=== PATIENT | female | born 1990 | race Caucasian/White ===

== ENCOUNTER → 2022-01-05 | Outpatient (CLI) | payer BC ==
--- NOTE | 2022-01-05 18:24 | Diagnostic Imaging Report ---
INDICATION: anatomy survey. TECHNIQUE: Multiple real-time grayscale images were obtained over the gravid uterus. COMPARISON: None. FINDINGS: Single live intrauterine is in cephalic presentation. Cervix measures 5.1 cm. Placenta is anterior positioned and there is no previa. Maternal adnexa are suboptimally evaluated due to advanced gestational age. Following anatomy is visualized and normal: Umbilical cord insertion, stomach, cerebral ventricles, urinary bladder, left ventricular outflow tract, cerebellum, right ventricular outflow tract, four-chamber heart, kidneys and lip/nose. The spine is not well evaluated due to positioning. Biometrical measurements are as follows: Biparietal 4.59 cm, age 20 weeks 0 days. Head circumference 17.45 cm, age 20 weeks 0 days. Abdominal circumference 15.59 cm, age 20 weeks 6 days. Femur length 3.43 cm, age 20 weeks 6 days. Sonographic estimate age: 20 weeks 3 days. Sonographic estimated date of delivery: 05/22/2022. Estimated Weight: 368 gm (+/- 54 gm). LMP percentile: 81%. heart rate: 160 beats per minute. number: 1 of 1. IMPRESSION: 1. Single live intrauterine has no abnormality of the visualized anatomy. However, the spine is suboptimally evaluated due to positioning. Dictated by: Dictated on workstation # [id number]
== END ==
LOC: RAD 11:31
PROVIDERS: ATTEND Nurse Practitioner Women's Health
DX: Z34.02 Encounter for supervision of normal first pregnancy, second trimester (principal); Z3A.00 Weeks of gestation of pregnancy not specified
CPT/HCPCS: 76805

== ENCOUNTER 2022-06-01 11:26 | Inpatient (IN) | payer BC ==
[~2022-06-01] VITALS: Ht 162.6 cm; Wt 105.5 kg
[2022-06-01] MEDS ORDERED: MINERAL OIL 30 ML UDC TOP PRN (11:45)
[2022-06-01 11:50] LABS: BILIRUBIN,URINE NEGATIVE (NEGATIVE); CLARITY,URINE CLEAR; COLOR,URINE YELLOW; GLUCOSE, URINE (UA) NEGATIVE (NEGATIVE); KETONES,URINE NEGATIVE (NEGATIVE); LEUKOCYTE ESTERASE ,URINE NEGATIVE (NEGATIVE); NITRITE,URINE NEGATIVE (NEGATIVE); PROTEIN,URINE NEGATIVE (NEGATIVE)
[2022-06-01 12:02] LABS: BACTERIA,URINE NEGATIVE /HPF; SQUAMOUS EPITHELIAL CELL,UR 0-2 /HPF
[2022-06-01 12:13] LABS: URINE CREATININE FOR RATIO 15 MG/DL (30-125)
[2022-06-01 12:14] LABS: URINE PROTEIN FOR RATIO ONLY < 6 MG/DL (6-12)
[2022-06-01 12:16] VITALS: BP 130/81
[2022-06-01 12:33] LABS: BASOPHILS % (AUTO) 0 % (0-10); EOSINOPHILS # (AUTO) 0.1 10^3/uL (0.0-0.3); EOSINOPHILS % (AUTO) 0 % (0-10); HEMATOCRIT 38 % (35-52); HEMOGLOBIN 12.8 g/dL (11.5-16.0); LYMPHOCYTES # (AUTO) 1.5 10^3/uL (1.0-4.0); LYMPHOCYTES % (AUTO) 12 % (12-44); MEAN CORPUSCULAR HEMOGLOBIN 29 pg (25-34); MEAN CORPUSCULAR HGB CONC 34 g/dL (32-36); MEAN CORPUSCULAR VOLUME 86 fL (80-99); MEAN PLATELET VOLUME 10.2 fL (9.0-12.2); MONOCYTES # (AUTO) 0.8 10^3/uL (0.0-1.0); MONOCYTES % (AUTO) 6 % (0-12); NEUTROPHILS # (AUTO) 10.3 10^3/uL (1.8-7.8); NEUTROPHILS % (AUTO) 81 % (42-75); PLATELET COUNT 238 10^3/uL (130-400); WHITE BLOOD COUNT 12.7 10^3/uL (4.3-11.0)
--- NOTE | 2022-06-01 12:43 | History & Physical-OB ---
JAYNA SAUCEDO 06/01/22 1243: OB - Chief Complaint & HPI Date/Time Date of Admission: Date of Admission: Jun 01, 2022 at 11:26 Time Seen by a Provider: 13:15 Chief Complaint/History OB-Reason for Admission/Chief: Onset of Labor Hx : 1 Hx Para: 0 Expected Date of Delivery: May 25, 2022 Gestational Age in Weeks: 41 Gestational Age in Days: 0 Admission Nurse Assessment Rev: Yes Allergies and Home Medications Allergies Coded Allergies: No Known Drug Allergies (Unverified , 06/01/22) Patient Home Medication List Home Medication List Reviewed: Yes OB - History Hx of Present Ultrasounds: Normal mid trimester US Obstetrical Complications: None Medical Complications: None Information Induced Hypertension: No Maternal Gestational Diabetes: No Hemorrhage: No Obstetrical History Hx : 1 Hx Para: 0 Hx # Pregnancies: 0 Hx Termination: No Hx Multiple Gestation: No Hx Ectopic : No Hx Stillbirth: No Hx Complication: No Hx Induced Hypertens: No Hx Maternal Gestational Diabet: No Hx Hemorrhage: No Delivery History Hx Dystocia: No Hx Forceps Assisted Delivery: No Hx Vacuum Extraction Assisted: No Hx Placenta Abnormality: No Hx Distress: No Hx Large For Gestational Age I: No Hx Small for Gestational Age I: No Hx Section: No Hx Vaginal Delivery Post C-Sec: No Hx Blood Disorders: No Adverse Rxn to Tranfusion: No Immunizations Influenza Vaccine Up-to-Date: Yes; Up-to-Date COVID19 Vaccine Pattern Mechanic: [place] Tetanus Booster (TDap): Less than 5yrs Rubella: immune RPR/VDRL: Negative GBS Status: Positive HBsAG: Negative OB - Admission Exam Physical Exam Vitals: Vital Signs 06/01/22 12:16 Temp 37.1 Pulse 96 Resp 18 Pulse Ox 98 O2 Delivery Room Air Heart: Rhythm Normal Lungs: Clear Abdomen: Gravid Extremities: Normal Cervical Dilatation: 1cm Effacement: 75% Membranes: Intact Heart Rate: 120's Contractions on Admission: < 5 Minutes Apart Intensity: Mild Tan Scoring Tool (Modified) Dilation (cm): 1-2cm (1) Effacement (%): 51-79% (2) Labs Laboratory Tests Test 06/01/22 11:37 06/01/22 12:00 Range/Units Urine Color YELLOW Urine Clarity CLEAR Urine pH 6.0 5-9 Urine Specific [place] <=1.005 1.016-1.022 Urine Protein NEGATIVE NEGATIVE Urine Glucose (UA) NEGATIVE NEGATIVE Urine Ketones NEGATIVE NEGATIVE Urine Nitrite NEGATIVE NEGATIVE Urine Bilirubin NEGATIVE NEGATIVE Urine Urobilinogen 0.2 < = 1.0 MG/DL Urine Leukocyte Esterase NEGATIVE NEGATIVE Urine RBC (Auto) NEGATIVE NEGATIVE Urine RBC NONE /HPF Urine WBC NONE /HPF Urine Squamous Epithelial Cells 0-2 /HPF Urine Crystals NONE /LPF Urine Bacteria NEGATIVE /HPF Urine Casts NONE /LPF Urine Mucus NEGATIVE /LPF Urine Culture Indicated NO Urine Creatinine 15 L 30-125 MG/DL Urine Protein/Creatinine Ratio White Blood Count 12.7 H 4.3-11.0 10^3/uL Red Blood Count 4.40 3.80-5.11 10^6/uL Hemoglobin 12.8 11.5-16.0 g/dL Hematocrit 38 35-52 % Mean Corpuscular Volume 86 80-99 fL Mean Corpuscular Hemoglobin 29 25-34 pg Mean Corpuscular Hemoglobin Concent 34 32-36 g/dL Red Cell Distribution Width 14.0 10.0-14.5 % Platelet Count 238 130-400 10^3/uL Mean Platelet Volume 10.2 9.0-12.2 fL Immature Granulocyte % (Auto) 1 % Neutrophils (%) (Auto) 81 H 42-75 % Lymphocytes (%) (Auto) 12 12-44 % Monocytes (%) (Auto) 6 0-12 % Eosinophils (%) (Auto) 0 0-10 % Basophils (%) (Auto) 0 0-10 % Neutrophils # (Auto) 10.3 H 1.8-7.8 10^3/uL Lymphocytes # (Auto) 1.5 1.0-4.0 10^3/uL Monocytes # (Auto) 0.8 0.0-1.0 10^3/uL Eosinophils # (Auto) 0.1 0.0-0.3 10^3/uL Basophils # (Auto) 0.0 0.0-0.1 10^3/uL Immature Granulocyte # (Auto) 0.1 0.0-0.1 10^3/uL OB - Assessment/Plan/Diagnosis Assessment Assessment: active labor, group B positive strep Admission Dx Active labor Admission Status: Inpatient Order (span 2 midnights) Plan Plan: Expectant Management CHAD OREILLY DO 06/01/22 1528: OB - Chief Complaint & HPI Date/Time Time Seen by a Provider: 15:27 Allergies and Home Medications Allergies Coded Allergies: No Known Drug Allergies (Unverified , 06/01/22) OB - History Patient Past Medical History nc OB - Assessment/Plan/Diagnosis Assessment Assessment: induction of labor Admission Dx 31 yo @ 41 weeks Post dates GBS pos Labile BP Plan Induction Method: per Misoprostol Protocol Other Plan Verification and Attestation of Medical Student E/M Service A medical student performed and documented this service in my presence. I revie wed and verified all information documented by the medical student and made modifications to such information, when appropriate. I personally performed the physical exam and medical decision making. Chad Oreilly, Jun 01, 2022,15:28 JAYNA SAUCEDO Jun 01, 2022 12:43 CHAD OREILLY DO Jun 01, 2022 15:28
[2022-06-01] MEDS ORDERED: AMPICILLIN FOR IV USE 2,000 MG in WATER (STERILE) FOR INJECTION 14.8 ML IV ONE (12:45)
[2022-06-01 12:46] LABS: ALBUMIN 3.4 GM/DL (3.2-4.5); BILIRUBIN,TOTAL 0.5 MG/DL (0.1-1.0); CALCIUM 8.3 MG/DL (8.5-10.1); CREATININE SERUM 0.67 MG/DL (0.60-1.30); POTASSIUM 3.6 MMOL/L (3.6-5.0); TOTAL PROTEIN 6.7 GM/DL (6.4-8.2)
[2022-06-01] MEDS: D5 LR IV SOLUTION 1,000 ML IV SCH ×2 (12:52→19:31)
[2022-06-01] MEDS: CATHETER FLUSH 10 ML SYR IV SCH ×2 (14:17→21:07)
[2022-06-01 15:39] VITALS: BP 112/67
[2022-06-01] MEDS: AMPICILLIN FOR IV USE 1,000 MG in NS (IVPB) 50 ML IV SCH ×2 (16:44→21:06)
[2022-06-01 21:15] VITALS: BP 126/78
[2022-06-01 23:37] VITALS: BP 121/63
[2022-06-02] VITALS (68 sets, daily range): BP systolic 106–167; BP diastolic 55–124
[2022-06-02] MEDS: AMPICILLIN FOR IV USE 1,000 MG in NS (IVPB) 50 ML IV SCH ×6 (01:25→18:07)
[2022-06-02] MEDS: D5 LR IV SOLUTION 1,000 ML IV SCH ×3 (03:55→19:45)
[2022-06-02] MEDS: CATHETER FLUSH 10 ML SYR IV SCH ×2 (06:16→14:17)
[2022-06-02] MEDS ORDERED: OXYTOCIN PRE-MIX DRIP 500 ML IV ONE (06:48)
--- NOTE | 2022-06-02 06:58 | Labor Progress Note ---
Labor Progress Note Labor Progress Note Date Seen by Provider: Jun 02, 2022 Time Seen by Provider: 07:30 Subjective: Pt denies complaints. Pain is manageable. Objective: Vital Signs Date Time Temp Pulse Resp B/P (MAP) Pulse Ox O2 Delivery O2 Flow Rate FiO2 06/01/22 21:15 37.1 102 20 126/78 (94) Room Air 06/01/22 15:39 36.7 82 18 112/67 (82) Room Air 06/01/22 12:16 37.1 96 18 98 Room Air I & O 06/02/22 07:00 Intake Total 975 ml Balance 975 ml Cervical exam: 1.5 Presentation: Vertex heart tones: 135 beats per minute, moderate variability Assessment/Plan: Jonna Meier is a (31 /Para 1 / 0,Gestational Age (wks)41 here for spontaneous induction of labor. CEFM/TOCO Starting ptocin soon. Anesthesia: No epidural placed at this time Anticipate vaginal delivery. Vitals - Labs Vital Signs - I&O Vital Signs Date Time Temp Pulse Resp B/P (MAP) Pulse Ox O2 Delivery O2 Flow Rate FiO2 06/01/22 21:15 37.1 102 20 126/78 (94) Room Air 06/01/22 15:39 36.7 82 18 112/67 (82) Room Air 06/01/22 12:16 37.1 96 18 98 Room Air I & O 06/02/22 07:00 Intake Total 975 ml Balance 975 ml Labs Laboratory Tests 06/01/22 11:37: Urine Color YELLOW, Urine Clarity CLEAR, Urine pH 6.0, Urine Specific [place] <=1.005, Urine Protein NEGATIVE, Urine Glucose (UA) NEGATIVE, Urine Ketones NEGATIVE, Urine Nitrite NEGATIVE, Urine Bilirubin NEGATIVE, Urine Urobilinogen 0 .2, Urine Leukocyte Esterase NEGATIVE, Urine RBC (Auto) NEGATIVE, Urine RBC NONE, Urine WBC NONE, Urine Squamous Epithelial Cells 0-2, Urine Crystals NONE, Urine Bacteria NEGATIVE, Urine Casts NONE, Urine Mucus NEGATIVE, Urine Culture Indicated NO, Urine Creatinine 15L, Urine Protein/Creatinine Ratio 06/01/22 12:00: White Blood Count 12.7H, Red Blood Count 4.40, Hemoglobin 12.8, Hematocrit 38, Mean Corpuscular Volume 86, Mean Corpuscular Hemoglobin 29, Mean Corpuscular Hemoglobin Concent 34, Red Cell Distribution Width 14.0, Platelet Count 238, Mean Platelet Volume 10.2, Immature Granulocyte % (Auto) 1, Neutrophils (%) (Auto) 81H, Lymphocytes (%) (Auto) 12, Monocytes (%) (Auto) 6, Eosinophils (%) (Auto) 0, Basophils (%) (Auto) 0, Neutrophils # (Auto) 10.3H, Lymphocytes # (Auto) 1.5, Monocytes # (Auto) 0.8, Eosinophils # (Auto) 0.1, Basophils # (Auto) 0.0, Immature Granulocyte # (Auto) 0.1, Sodium Level 138, Potassium Level 3.6, Chloride Level 108H, Carbon Dioxide Level 19L, Anion Gap 11, Blood Urea Nitrogen 6L, Creatinine 0.67, Estimat Glomerular Filtration Rate 121, BUN/Creatinine Ratio 9, Glucose Level 79, Uric Acid 5.0, Calcium Level 8.3L, Corrected Calcium 8.8, Total Bilirubin 0.5, Aspartate Amino Transf (AST/SGOT) 13, Alanine Aminotransferase (ALT/SGPT) 16, Alkaline Phosphatase 150H, Total Protein 6.7, Albumin 3.4, Syphilis Serology Non-Reactive JAYNA SAUCEOD Jun 02, 2022 06:58
[2022-06-02] MEDS ORDERED: OXYTOCIN PRE-MIX DRIP 500 ML IV SCH (07:45)
[2022-06-02] MEDS ORDERED: LACTATED RINGERS 1,000 ML IV ONE (09:45)
[2022-06-02] MEDS ORDERED: fentaNYL 2 mcg/ml BUPIVA 0.125 100 ML ONE (09:45)
[2022-06-02] MEDS ORDERED: fentaNYL INJ 100 MCG/2 ML AMP ONE ×2 (10:00→19:27)
[2022-06-02] MEDS ORDERED: BUPIVACAINE 0.5% 30 ML (SENSORCAINE) VIAL ONE ×2 (10:01→20:13)
[2022-06-02] MEDS: fentaNYL 2 mcg/ml BUPIVA 0.125 100 ML EPI SCH ×2 (10:42→18:09)
[2022-06-02] MEDS ORDERED: diphenhydrAMINE 50 MG/ML INJ (BENADRYL) IV PRN (10:45)
[2022-06-02] MEDS ORDERED: LACTATED RINGERS 1,000 ML IV SCH (10:45)
[2022-06-02] MEDS ORDERED: ONDANSETRON 4 MG/2 ML (SDV) Z0FRAN IV PRN (10:45)
[2022-06-02] MEDS ORDERED: NALOXONE 0.4 MG/ML 1 ML (NARCAN) VIAL IV PRN ×2 (10:45→19:45)
[2022-06-02] MEDS ORDERED: METOCLOPRAMIDE INJ 10 MG/2 ML (REGLAN) ONE (19:21)
[2022-06-02] MEDS ORDERED: FAMOTIDINE 20MG/2ML IV (PEPCID) ONE (19:21)
[2022-06-02] MEDS ORDERED: CITRIC ACID/SOB CIT (BICITRA) 30 ML UDC ONE (19:21)
[2022-06-02] MEDS ORDERED: ceFAZolin INJECTION 2,000 MG ONE (19:22)
[2022-06-02] MEDS ORDERED: NS (IVPB) 50 ML ONE (19:22)
[2022-06-02] MEDS ORDERED: LIDOCAINE PF 2% 5 ML (XYLOCAINE) VIAL ONE ×2 (19:27→20:13)
[2022-06-02] MEDS ORDERED: CATHETER FLUSH 10 ML SYR IV PRN (19:30)
[2022-06-02] MEDS ORDERED: ceFAZolin INJECTION 2,000 MG in NS (IVPB) 50 ML IV ONE (19:30)
[2022-06-02] MEDS ORDERED: METOCLOPRAMIDE INJ 10 MG/2 ML (REGLAN) IV ONE (19:30)
[2022-06-02] MEDS ORDERED: LACTATED RINGERS 1,000 ML IV PRN ×2 (19:30)
[2022-06-02] MEDS ORDERED: FAMOTIDINE 20MG/2ML IV (PEPCID) IV ONE (19:30)
[2022-06-02] MEDS ORDERED: CITRIC ACID/SOB CIT (BICITRA) 30 ML UDC PO ONE (19:30)
[2022-06-02] MEDS ORDERED: TETANUS,DIPTH,PERTUSS P/F (BOOSTRIX) 0.5 ML VIAL IM SCH (19:45)
[2022-06-02] MEDS ORDERED: ONDANSETRON 4 MG/2 ML (SDV) Z0FRAN IVP PRN (19:45)
[2022-06-02] MEDS ORDERED: MEASLES,MUMPS,RUBELLA 1 EA INJ SC SCH (19:45)
--- NOTE | 2022-06-02 19:49 | Progress Note ---
Standard Progress Note Progress Notes/Assess & Plan Date Seen by a Provider: Jun 02, 2022 Time Seen by a Provider: 19:47 Progress/Assessment & Plan Patient admitted yesterday for post dates IOL 41 weeks with elevations in BP in the office, and non-reactive NST. Misoprostol used PO overnight, and started on pitocin this AM, followed by AROM, and epidural placement. She progressed to 4 cm when a large caput began to develop. No further progression took place over the next 5 hrs. heart tracing had periods of tachycardia and variable, at which point I recommended proceeding the Primary C/S. Risk reviewed with patient vs. risk of further waiting and she was agreeable to proceed. CHAD OREILLY DO Jun 02, 2022 19:49
--- NOTE | 2022-06-02 19:51 | Discharge Inst-Women's Service ---
Discharge Inst-Women's Serv Depart Medication/Instructions New, Converted or Re-Newed RX: Transmitted to Pharmacy Final Diagnosis POD 2 PLTCS Problems Reviewed?: Yes Consults/Follow Up Additional Follow Up: Yes Orders/Referrals Dr. Simms in 7-10 days and in 6 weeks Activity Activity: Activity as Tolerated Driving Instructions: No Driving for 1 Week NO SMOKING: NO SMOKING Nothing Inside Vagina: No Douching, No [place], No Tampons Diet Discharge Diet: No Restrictions Symptoms to Report to : Bleeding Excessive, Pain Increased, Fever Over 101 Degrees F, Vaginal Bleeding Increase, Questions/Concerns For Any Problems or Questions: Contact Your Physician Skin/Wound Care Infection Signs and Symptoms: Increased Redness, Foul Odor of Wound, Increased Drainage, Skin Itchy or Has a Rash, Increased Swelling, Temperature Above 101 F Operative Area Clean and Dry: Keep Incision Clean/Dry Stitches/[place]/Dermabond: Dermabond, Care of Stitches Bathing Instructions: CHAD Vyas DO Jun 02, 2022 19:50
[2022-06-02] MEDS ORDERED: IBUP-844 PO (19:52)
[2022-06-02] MEDS ORDERED: DOCU100C37 PO (19:52)
[2022-06-02] MEDS ORDERED: ACHD5005 PO (19:52)
[2022-06-02] MEDS ORDERED: CARBOPROST (HEMABATE) 250 MCG/ML AMP IM ONE (20:11)
[2022-06-02] MEDS ORDERED: ONDANSETRON 4 MG/2 ML (SDV) Z0FRAN ONE (20:13)
[2022-06-02] MEDS ORDERED: KETOROLAC 30 MG/ML VIAL ONE (20:27)
[2022-06-02] MEDS: KETOROLAC 30 MG/ML VIAL IV SCH (20:30)
[2022-06-02] MEDS ORDERED: CATHETER FLUSH 10 ML SYR IV SCH (22:00)
[2022-06-02] MEDS: OXYTOCIN PRE-MIX DRIP 500 ML IV SCH ×2 (22:47→23:45)
[2022-06-02] MEDS: DOCUSATE SODIUM 100 MG (COLACE) CAP PO SCH (22:47)
[2022-06-02] MEDS: HYDROcodone/APAP 5 MG/325 MG (LORTAB) TAB PO PRN (23:09)
[2022-06-03] VITALS (7 sets, daily range): BP systolic 105–130; BP diastolic 59–81
--- NOTE | 2022-06-03 01:46 | OPERATIVE REPORT ---
PREOPERATIVE DIAGNOSES: 1. A 31-year-old female at 41 weeks' gestation. 2. Failure to progress. POSTOPERATIVE DIAGNOSES: 1. A 31-year-old female at 41 weeks' gestation. 2. Failure to progress. PROCEDURE: Primary low transverse section. SURGEON: Owen Oreilly DO DATA MANAGEMENT: Cuca Walker, CY was necessary for manipulation and retraction throughout the procedure. ANESTHESIA: Epidural, which was bolused. ESTIMATED BLOOD LOSS: 700 mL. URINE OUTPUT: 100 mL clear at the end of the procedure. FLUIDS: 1000 mL lactated Ringer's solution. FINDINGS: A live female , weighing 7 pounds 4 ounces, Apgars of 8 and 9. Grossly normal appearing uterus, bilateral fallopian tubes and ovaries. SPECIMEN SENT: Placenta. INDICATIONS FOR PROCEDURE: This 39-year-old female, was a patient who was brought in for induction of labor for postdates yesterday morning. She received misoprostol throughout the day and evening and then started on Pitocin augmentation in the morning. Artificial rupture of membranes was performed and Pitocin augmentation was continued to a good contraction pattern that was functional. She received an epidural for analgesia, progressed to 4 cm and over the process in the next 4-5 hours made no further change. There was a large caput noted and suspicion for asynclitic presentation. Due to failure to progress and arrest of dilation, we discussed proceeding with a primary . Risks were reviewed with the patient. After all of her questions were answered, she was agreeable to proceed. Consent was obtained. The patient was taken to the operating room. OPERATIVE DESCRIPTION IN DETAIL: Once in the operating room, epidural analgesia was bolused and found to be adequate, was placed in supine position with leftward tilt, prepped and draped in normal sterile fashion. A timeout was performed. Anesthesia was tested and then make a Pfannenstiel skin incision with a knife and carried underlying fascia using Bovie cautery. The fascial incision extended laterally using Bovie cautery. The superior aspect of fascial incision was then grasped with Godfrey clamp, tented up, dissected off the underlying rectus muscles. The inferior aspect of the fascial incision was then grasped with Godfrey clamps, tented up and dissected off the underlying rectus muscles. Rectus muscles were dissected sharply down the midline, which exposed the peritoneum, which I entered bluntly and extended using blunt traction. Keith ring retractor was placed in the peritoneal incision, which offers excellent lateral sidewall retraction. I identified the lower uterine segment was found to be thinned out. I make a low transverse incision to the vesicouterine peritoneum and bluntly dissected off the lower uterine segment, creating a bladder flap. I then proceeded with my myotomy until membranes were visualized, at which point I extended the uterine incision laterally and superiorly using bandage scissors. Amniotomy was performed. In the process of doing this, the does express some meconium-stained fluid. At that point, the infant was found in the occiput posterior presentation. With gentle fundal pressure, the 's head was elevated up to the incision where was delivered through the incision, the nares and oropharynx were bulb suctioned. Nuchal cord was reduced x1. Anterior and posterior shoulders were delivered. The was brought to the operative field where cord was doubly clamped and cut and was handed off to waiting nurses in attendance. Cord blood was collected. Three-vessel cord and intact placenta was delivered spontaneously thereafter. IV Pitocin was initiated to facilitate uterine contraction. Uterine fundus remained slightly boggy despite IV Pitocin administration. I then have anesthesia give 250 mcg of carboprost IM to help support uterine tone. Once the uterus was exteriorized and cleared of all endometrial clots and debris, I then proceeded with closing the uterine incision using 0 Vicryl suture in a running locked fashion. Second layer of imbricating 0 Monocryl was placed. Excellent hemostasis was noted after doing this, there was a notable improvement in uterine tone. At that point, when I placed the uterus back in the pelvis and copiously irrigated the pelvis using normal saline. There was no active bleeding noted from any of my dissection planes. There was a gentle seepage noted from the incision line. I placed a Surgicel hemostatic agent over those planes of dissection and then covered this with Interceed. I then removed the Keith ring retractor and proceeded with closing the peritoneum using 3-0 Vicryl suture in a running fashion. The rectus muscles were reapproximated using 3-0 Vicryl in interrupted fashion. The fascia was reapproximated using 0 Vicryl suture in a running fashion. The subcutaneous tissue was reapproximated using 3-0 plain interrupted subcutaneous stitch and skin reapproximated using 4-0 Monocryl running subcuticular. Dermabond was applied to incision, sterile dressing was adhesed with white tape. The patient tolerated the procedure well and sent to recovery area in stable condition. Lap and sponge counts were correct at the end of the procedure. Instrument counts correct as well. Two grams of Ancef were given preoperatively for infection prophylaxis. Job ID: [id number] DocumentID: [id number] Dictated Date: 06/02/2022 20:46:28 Medical Lab Tech Instructor Date: 06/03/2022 01:44:00 Dictated By: OWEN OREILLY DO
[2022-06-03] MEDS: KETOROLAC 30 MG/ML VIAL IV SCH ×2 (02:10→09:55)
[2022-06-03] MEDS: D5 LR IV SOLUTION 1,000 ML IV SCH (03:48)
[2022-06-03 06:01] LABS: BASOPHILS % (AUTO) 0 % (0-10); EOSINOPHILS % (AUTO) 0 % (0-10); HEMATOCRIT 26 % (35-52); HEMOGLOBIN 8.9 g/dL (11.5-16.0); LYMPHOCYTES # (AUTO) 1.2 10^3/uL (1.0-4.0); LYMPHOCYTES % (AUTO) 7 % (12-44); MEAN CORPUSCULAR HEMOGLOBIN 30 pg (25-34); MEAN CORPUSCULAR HGB CONC 34 g/dL (32-36); MEAN CORPUSCULAR VOLUME 87 fL (80-99); MEAN PLATELET VOLUME 10.5 fL (9.0-12.2); MONOCYTES # (AUTO) 0.9 10^3/uL (0.0-1.0); MONOCYTES % (AUTO) 6 % (0-12); NEUTROPHILS # (AUTO) 14.9 10^3/uL (1.8-7.8); NEUTROPHILS % (AUTO) 86 % (42-75); PLATELET COUNT 203 10^3/uL (130-400); WHITE BLOOD COUNT 17.2 10^3/uL (4.3-11.0)
--- NOTE | 2022-06-03 07:03 | Postpartum Progress Note ---
JAYNA SAUCEDO 06/03/22 0703: Note Note Day # 1 Subjective: Patient is without complaints. Ambulating, voiding. Tolerating a regular diet without nausea or vomiting. Normal lochia. Pain is well controlled with oral pain medications. Objective: Physical Exam: General - Alert and oriented, no apparent distress Cardio - RRR, no murmurs Pulm - CTAB Abdomen - Soft, appropriately tender to palpation, non-distended, fundus firm at umbilicus Extremities - no edema, negative Karen's bilaterally Assessment: post- day # 1, status post section Recovering well, hemodynamically stable Acute blood loss anemia Reactive leukocytosis Plan: Routine care. Encourage breast feeding. Encourage ambulation. Advised her about orthostatic hypotension and to take her time ambulating. Ferrous sulfate supplementation. Plan for discharge 06/04/2022 Vitals - Labs Vital Signs - I&O Vital Signs Date Time Temp Pulse Resp B/P (MAP) Pulse Ox O2 Delivery O2 Flow Rate FiO2 06/03/22 03:18 36.7 75 18 105/60 (75) 97 Room Air 06/03/22 00:30 36.5 81 18 111/72 (85) 97 Room Air 06/02/22 22:48 36.1 89 18 122/78 (93) 96 Room Air 06/02/22 22:16 Room Air 06/02/22 21:45 36.4 92 18 118/74 (89) 96 Room Air 06/02/22 21:40 36.4 20 124/71 (88) 97 Room Air 06/02/22 21:40 Room Air 06/02/22 21:30 Room Air 06/02/22 21:30 20 123/72 (89) 97 Room Air 06/02/22 21:20 20 124/76 (92) 96 Room Air 06/02/22 21:15 Room Air 06/02/22 21:10 36.2 20 122/76 (91) 96 Room Air 06/02/22 21:00 20 130/86 (101) 96 Room Air 06/02/22 21:00 Room Air 06/02/22 20:55 Room Air 06/02/22 20:55 36.4 20 130/81 (97) 98 Room Air 06/02/22 19:00 Room Air 06/02/22 18:45 100 18 145/83 (103) 100 Room Air 06/02/22 18:30 112 18 135/80 (98) 100 Room Air 06/02/22 18:15 109 18 133/74 (93) 100 Room Air 06/02/22 18:00 37.8 118 18 156/87 (110) 100 Room Air 06/02/22 17:45 103 18 125/69 (87) 100 Room Air 06/02/22 17:30 100 18 136/76 (96) 100 Room Air 06/02/22 17:15 112 18 142/78 (99) 100 Room Air 06/02/22 17:00 101 18 134/80 (98) 96 Room Air 06/02/22 16:45 95 18 137/86 (103) 96 Room Air 06/02/22 16:30 105 18 137/87 (104) 98 Room Air 06/02/22 16:15 37.4 111 18 137/94 (108) 99 Room Air 06/02/22 16:00 108 18 134/88 (103) 98 Room Air 06/02/22 15:45 116 18 127/79 (95) 99 Room Air 06/02/22 15:15 111 18 137/83 (101) 99 Room Air 06/02/22 15:00 106 18 106/55 (72) 97 Room Air 06/02/22 14:45 84 18 106/55 (72) 97 Room Air 06/02/22 14:30 110 18 140/95 (110) 95 Room Air 06/02/22 14:15 110 18 140/95 (110) 95 Room Air 06/02/22 14:00 110 18 140/95 (110) 95 Room Air 06/02/22 13:57 36.7 06/02/22 13:45 101 18 126/77 (93) 94 Room Air 06/02/22 13:30 111 18 128/75 (92) 95 Room Air 06/02/22 13:15 107 18 125/79 (94) 95 Room Air 06/02/22 13:00 108 18 131/75 (93) 95 Room Air 06/02/22 12:45 108 18 131/75 (93) 95 Room Air 06/02/22 12:30 103 18 124/72 (89) 94 Room Air 06/02/22 12:15 104 18 127/76 (93) 95 Room Air 06/02/22 12:00 113 18 122/76 (91) 95 Room Air 06/02/22 11:45 113 18 126/74 (91) 96 Room Air 06/02/22 11:30 108 18 137/79 (98) 96 Room Air 06/02/22 11:15 122 18 133/77 (95) 96 Room Air 06/02/22 11:05 114 18 96 Room Air 06/02/22 11:00 113 18 140/80 (100) 96 Room Air 06/02/22 10:55 100 18 132/78 (96) 97 Room Air 06/02/22 10:50 109 18 125/66 (85) 98 Room Air 06/02/22 10:45 110 18 127/68 (87) 98 Room Air 06/02/22 10:40 37.3 120 18 124/71 (88) 97 Room Air 06/02/22 10:35 123 18 122/69 (86) 97 Room Air 06/02/22 10:30 112 18 98 Room Air 06/02/22 10:25 113 18 120/70 (87) 98 Room Air 06/02/22 10:20 117 18 126/72 (90) 98 Room Air 06/02/22 10:15 118 18 135/74 (94) 98 Room Air 06/02/22 10:10 117 18 133/76 (95) 97 Room Air 06/02/22 10:00 96 18 136/64 (88) Room Air 06/02/22 09:45 118 18 136/90 (105) Room Air 06/02/22 09:30 92 18 129/72 (91) Room Air 06/02/22 09:15 100 18 136/79 (98) Room Air 06/02/22 09:00 80 18 123/64 (83) Room Air 06/02/22 08:45 90 18 125/80 (95) Room Air 06/02/22 08:30 89 18 114/69 (84) Room Air 06/02/22 08:15 100 18 124/80 (95) Room Air 06/02/22 08:00 100 18 123/69 (87) Room Air 06/02/22 07:45 98 18 126/75 (92) Room Air 06/02/22 07:35 37.0 101 18 130/74 (92) Room Air I & O 06/03/22 07:00 Intake Total 1650 ml Output Total 600 ml Balance 1050 ml Labs Laboratory Tests 06/03/22 05:13: White Blood Count 17.2H, Red Blood Count 3.01L, Hemoglobin 8.9#L, Hematocrit 26L , Mean Corpuscular Volume 87, Mean Corpuscular Hemoglobin 30, Mean Corpuscular Hemoglobin Concent 34, Red Cell Distribution Width 14.2, Platelet Count 203, Mean Platelet Volume 10.5, Immature Granulocyte % (Auto) 1, Neutrophils (%) (Auto) 86H, Lymphocytes (%) (Auto) 7L, Monocytes (%) (Auto) 6, Eosinophils (%) (Auto) 0, Basophils (%) (Auto) 0, Neutrophils # (Auto) 14.9H, Lymphocytes # (Auto) 1.2, Monocytes # (Auto) 0.9, Eosinophils # (Auto) 0.0, Basophils # (Auto) 0.0, Immature Granulocyte # (Auto) 0.1 CHAD OREILLY DO 06/03/22 0721: Note Note Verification and Attestation of Medical Student E/M Service A medical student performed and documented this service in my presence. I reviewed and verified all information documented by the medical student and made modifications to such information, when appropriate. I personally performed the physical exam and medical decision making. Chad Oreilly, Jun 03, 2022,07:21 JAYNA SAUCEDO Jun 03, 2022 07:03 CHAD OREILLY DO Jun 03, 2022 07:21
--- NOTE | 2022-06-03 08:53 | Anesthesia-Regional Post-Op ---
Regional Patient Condition Mental Status: Alert, Oriented x3 Circulation: Same as Pre-Op Headache: Absent Sensation: Full Recovery Motor Block: Absent Post Op Complications Complications None Follow Up Care/Instructions Patient Instructions None needed. Anesthesia/Patient Condition Patient is doing well, no complaints, stable vital signs, no apparent adverse anesthesia problems. No complications reported per nursing. D/C home per [facility] [place] Criteria: Yes TYRON POE CRNA Jun 03, 2022 08:53
[2022-06-03] MEDS: DOCUSATE SODIUM 100 MG (COLACE) CAP PO SCH ×2 (09:55→19:32)
[2022-06-03] MEDS: HYDROcodone/APAP 5 MG/325 MG (LORTAB) TAB PO PRN (10:03)
[2022-06-03] MEDS: IBUPROFEN 600 MG (MOTRIN) TAB PO SCH (19:32)
[2022-06-04 02:32] VITALS: BP 106/65
[2022-06-04] MEDS: IBUPROFEN 600 MG (MOTRIN) TAB PO SCH ×2 (02:32→08:20)
[2022-06-04] MEDS: HYDROcodone/APAP 5 MG/325 MG (LORTAB) TAB PO PRN (06:27)
--- NOTE | 2022-06-04 07:31 | Postpartum Progress Note ---
Note Note Day # 2 Subjective: Patient is without complaints. Ambulating, voiding. Tolerating a regular diet without nausea or vomiting. Normal lochia. Pain is well controlled with oral pain medications. Objective: Physical Exam: General - Alert and oriented, no apparent distress Abdomen - Soft, appropriately tender to palpation, non-distended, fundus firm at umbilicus Extremities - no edema, negative Karen's bilaterally Incision is clean and intact with no discharge Assessment: Post- day # 2, status post section. Recovering well, hemodynamically stable Plan: Routine care. Encourage breast feeding. Encourage ambulation. Ferrous sulfate supplementation. Plan for discharge 06/04 Vitals - Labs Vital Signs - I&O Vital Signs Date Time Temp Pulse Resp B/P (MAP) Pulse Ox O2 Delivery O2 Flow Rate FiO2 06/04/22 02:32 36.3 95 18 106/65 (79) 99 Room Air 06/03/22 19:32 36.6 98 16 130/81 (97) 99 Room Air 06/03/22 16:09 36.7 75 16 108/62 (77) 98 Room Air 06/03/22 11:56 35.6 91 18 122/59 (80) 99 Room Air 06/03/22 10:00 36.6 88 18 125/64 (84) 99 Room Air 06/03/22 08:00 36.7 75 18 105/60 (75) 97 Room Air I & O 06/04/22 07:00 Intake Total 1000 ml Balance 1000 ml JAYNA SAUCEDO Jun 04, 2022 07:31
[2022-06-04] MEDS: DOCUSATE SODIUM 100 MG (COLACE) CAP PO SCH (08:20)
[2022-06-04 08:30] VITALS: BP 116/77
[2022-06-04 13:20] VITALS: BP 116/77
== END 2022-06-04 13:20 | disposition home or self-care (01) | DRG 787 ==
LOC: LDRP 11:26 → WS 06-02 21:40
PROVIDERS: ADMIT Obstetrics & Gynecology; ATTEND Obstetrics & Gynecology
PROC: 10907ZC Drainage of Amniotic Fluid, Therapeutic from Products of Conception, Via Natural or Artificial Opening (ICD-10-PCS; 2022-06-01)
PROC: 3E0DXGC Introduction of Other Therapeutic Substance into Mouth and Pharynx, External Approach (ICD-10-PCS; 2022-06-02)
PROC: 10D00Z1 Extraction of Products of Conception, Low, Open Approach (ICD-10-PCS; principal; 2022-06-02 19:44)
DX: O48.0 Post-term pregnancy (principal); D62 Acute posthemorrhagic anemia; O99.824 Streptococcus B carrier state complicating childbirth; Z3A.41 41 weeks gestation of pregnancy; Z37.0 Single live birth; O64.8XX0 Obstructed labor due to other malposition and malpresentation, not applicable or unspecified; O62.1 Secondary uterine inertia; O76 Abnormality in fetal heart rate and rhythm complicating labor and delivery; O90.81 Anemia of the puerperium; D72.828 Other elevated white blood cell count; R03.0 Elevated blood-pressure reading, without diagnosis of hypertension; Z23 Encounter for immunization
CPT/HCPCS: 36415; 80053; 81000; 82570; 84156; 84550; 85025; 86780; 86850; 86900; 86901; 90707; 94664